=== PATIENT | male | born 1990 | race Caucasian/White ===

== ENCOUNTER 2024-08-17 00:11 | Emergency (ER) | payer OTHER, SELFPAY ==
[2024-08-17 00:17] VITALS: BP 138/85; PULSE 72; RESP 16; TEMP 35.9; O2SAT 100; BMI 27.3
--- NOTE | 2024-08-17 00:36 | ED.ABDPAIN ---
HPI - Abdominal Pain General Chief Complaint: Abdominal Pain Stated Complaint: dry heaving x4 hours Time Seen by Provider: 08/17/24 00:26 Source: patient Mode of arrival: Ambulatory History of Present Illness HPI narrative: 34-year-old male healthy with no significant past medical or past surgical history presents with for 5 hours of nausea vomiting and dry heaving, R sided abd pain and back pain, last ate a few hours ago. Patient took Pepto-Bismol with no relief of his symptoms. Other than what is stated 14 point review of system is negative. Related Data Previous Rx's Medication Instructions Recorded ondansetron 4 mg disintegrating 4 mg PO Q8H PRN nausea and 08/17/24 tablet vomiting #15 tabs prednisone 20 mg tablet 20 mg PO DAILY #5 tabs 08/17/24 Allergies Allergy/AdvReac Type Severity Reaction Status Date / Time No Known Drug Allergies Allergy Verified 08/17/24 00:16 Review of Systems Review of Systems ROS Unobtainable: All systems reviewed & are unremarkable except as noted in HPI and below Patient History Social History Smoking Status: Never smoker Smoking Status: Never smoker Exam Narrative Exam Narrative: GENERAL: [34] year old patient appears stated age. Well-developed patient, in mild distress. HEAD: Atraumatic. Normocephalic. EYES: Pupils equal round and reactive. Extraocular motions intact. No scleral icterus. No injection or drainage. ENT: Nose without bleeding, purulent drainage. Throat without erythema, tonsillar hypertrophy or exudate. Airway patent. NECK: Trachea midline. Non tender CARDIOVASCULAR: Regular rate and rhythm without murmurs, gallops, or rubs. RESPIRATORY: Clear to auscultation. Breath sounds equal bilaterally. No wheezes, rales, or rhonchi. GASTROINTESTINAL: Abdomen soft, diffuse ttp but neg zhang and neg rosvingn, nondistended. EXTREMITIES: No edema or joint tenderness. BACK: Nontender without deformity or crepitance. No flank tenderness. NEURO: AOx3. SKIN: No rash or erythema of visible areas Initial Vital Signs Initial Vital Signs: Vital Signs Temperature 96.7 F L 08/17/24 00:17 Pulse Rate 72 08/17/24 00:17 Respiratory Rate 16 08/17/24 00:17 Blood Pressure 138/85 08/17/24 00:17 Pulse Oximetry 100 08/17/24 00:17 Oxygen Delivery Method Room Air 08/17/24 00:17 Course Orders Ordered: ED Orders 08/17/24 00:37 CT abdomen pelvis w con Stat Discontinued Medications Lactated Ringer's (Lactated Ringers) 1,000 mls @ 1,000 mls/hr IV BOLUS ONE Stop: 08/17/24 01:37 Last Infusion: 08/17/24 01:52 Dose: Infused Documented By: Admin: 08/17/24 00:43 Dose: 1,000 mls/hr Documented By: Ketorolac Tromethamine (Ketorolac 30 Mg/Ml Vial) 30 mg IV NOW ONE Stop: 08/17/24 00:38 Last Admin: 08/17/24 00:43 Dose: 30 mg Documented By: Ondansetron HCl (Ondansetron 4 Mg/2 Ml Inj) 4 mg IV NOW ONE Stop: 08/17/24 00:38 Last Admin: 08/17/24 00:43 Dose: 4 mg Documented By: Vital Signs Vital signs: Vital Signs - 8 hr 08/17/24 00:17 08/17/24 01:19 08/17/24 01:19 Temperature 96.7 F L Pulse Rate 72 76 Respiratory Rate 16 Blood Pressure 138/85 136/76 Pulse Oximetry 100 99 Oxygen Delivery Method Room Air 08/17/24 01:30 08/17/24 01:30 Temperature Pulse Rate 71 Respiratory Rate Blood Pressure 134/76 Pulse Oximetry 98 Oxygen Delivery Method Room Air MDM - Abdominal Pain Imaging Data CT scan - abdomen/pelvis: Radiologist's Impression: [place] [address] CT Scan Report Signed Patient: Jeet Jennings MR#: [id number] : 1990 Acct:[id number] Age/Sex: 34 / M Date of Service: 08/17/24 Loc: ED Accession Number: [id number] Procedure: CT abdomen pelvis w con Ordering Provider: Tyrell Huntley D.O. PROCEDURE: CT ABDOMEN PELVIS W CON INDICATIONS: abdominal pain, N/V TECHNIQUE: After the administration of intravenous contrast, axial sections acquired from the lung bases to the pubic symphysis. Coronal and sagittal reformats were performed. For radiation dose reduction, the following was used: automated exposure control, adjustment of mA and/or kV according to patient size. COMPARISON: None. FINDINGS: Image quality: Diagnostic. Lower Chest: No significant findings. ABDOMEN: Liver: No solid mass. Scattered subcentimeter hypoattenuating lesions, too small to characterize by CT but probably small cysts. Gallbladder: No radiopaque gallstones or wall thickening. Biliary ducts: No biliary dilation. Pancreas: No ductal dilation. Spleen: Size is within normal limits. Adrenal Glands: No adrenal nodules. Kidneys and Ureters: No hydronephrosis. No solid mass. No complex renal cystic lesion which requires follow up. Stomach and Bowel: Distended loops of small bowel, without a discernible transition point. There are a few regions [id number] bowel wall thickening, with wall stratification. Wall thickening measures up to 4 mm (series 3, image 41). Peritoneum: Trace free fluid in the pelvis, likely reactive. Ventral Wall: No significant ventral hernia. Abdominal Nodes: No retroperitoneal or mesenteric adenopathy by size criteria. Vessels: Aorta and inferior vena cava are normal in size. PELVIS: Pelvic Organs: Unremarkable. Bladder: No bladder wall thickening, accounting for underdistention. Pelvic Nodes: No enlarged lymph nodes. Miscellaneous: No inguinal hernias are seen. Bones: No aggressive osseous abnormality. Sacroiliitis with ankylosis of the left sacroiliac joint. IMPRESSION: Small bowel distension with no discernible transition point. Additionally, there are skip lesions of [id number] wall thickening. Lastly, there is sacroiliitis with ankylosis of the left sacroiliac joint. Together, findings are concerning for inflammatory bowel disease, specifically Crohn's disease. Infectious enteritis is also consideration but less likely given the presence of skip lesions. Recommend outpatient GI referral. Dictated by: Sylvester Kramer M.D. on 08/17/2024 at 1:39 Approved by: Sylvester Kramer M.D. on 08/17/2024 at 1:44 MDM Narrative Medical decision making narrative: Vital signs medication list nurse triage note imaging studies in all previous visits all reviewed. Patient given lactated Ringer's 1 L bolus, Toradol IV, Zofran IV, Solumedrol 125mg IV. DC home on prednisone and Zofran and to follow up with GI MD. Differential diagnosis includes appendicitis, cholecystitis, constipation, pancreatitis, viral etiology. Discharge Plan Departure Patient Disposition: Home Clinical Impression: Crohn disease Qualifiers: Gastrointestinal tract location: small intestine Digestive disease complication type: without complication Qualified Code(s): K50.00 - Crohn's disease of small intestine without complications Instructions: DI for Crohns Disease Activity Restrictions/Additional Instructions: Return with new or worsening symptoms. Follow up with GI MD this week. Take your medicines as directed. Prescriptions: New prednisone 20 mg tablet 20 mg PO DAILY Qty: 5 0RF ondansetron 4 mg tablet,disintegrating 4 mg PO Q8H PRN (Reason: nausea and vomiting) Qty: 15 0RF Stand Alone Forms: Patient Portal/API/Survey
[2024-08-17] MEDS: ONDANSETRON 4 MG/2 ML INJ IV (00:43)
[2024-08-17] MEDS: KETOROLAC 30 MG/ML VIAL IV (00:43)
[2024-08-17] MEDS: LACTATED RINGERS 1,000 ML 1000 ML IV (00:43)
[2024-08-17 01:19] VITALS: BP 136/76; PULSE 76; O2SAT 99
[2024-08-17 01:30] VITALS: BP 134/76; PULSE 71; O2SAT 98
[2024-08-17 02:00] VITALS: BP 121/66; PULSE 72; O2SAT 98
[2024-08-17 02:15] LABS: Add Manual Diff / Slide Review NO; Basophils Absolute Auto 100 /uL (0-100); Basophils Percent Auto 0.4 % (0-2); Eosinophils Absolute Auto 200 /uL (0-450); Eosinophils Percent Auto 1.3 % (2-4); Hematocrit 47.5 % (41-53); Hemoglobin 16.5 g/dL (13.5-17.5); Lymphocytes Absolute Auto 2300 /uL (1100-4500); Lymphocytes Percent Auto 15.8 % (25-40); Mean Corpuscular HGB Conc 34.8 % (30-36); Mean Corpuscular Hemoglobin 30.1 PG (26-34); Mean Corpuscular Volume 86.5 fL (80-100); Monocytes Absolute Auto 700 /uL (0-900); Monocytes Percent Auto 4.8 % (3-14); Neutrophils Absolute Auto 11400 /uL (1500-7000); Neutrophils Percent Auto 77.7 % (50-75); Platelet Count 252 X10^3/uL (150-400); Red Blood Cell Count 5.49 X10^6/uL (4.5-5.9); Red Cell Distribution Width 12.2 % (11.6-14.8); White Blood Cell Count 14.7 X10^3/uL (4.5-11.0)
[2024-08-17 02:30] VITALS: BP 129/68; PULSE 73; O2SAT 97
[2024-08-17 02:39] LABS: Alanine Aminotransferase 48 IU/L (<50); Albumin 5.3 g/dL (3.5-5.0); Albumin Globulin Ratio 1.3 (1.0-2.8); Alkaline Phosphatase 94 U/L (38-126); Aspartate Aminotransferase 62 IU/L (17-59); BUN Creatinine Ratio 12.9 (6-22); Bilirubin Total 1.1 mg/dL (0.2-1.3); Blood Urea Nitrogen 17 mg/dL (9-20); Calcium 10.4 mg/dL (8.4-10.2); Carbon Dioxide 25 mmol/L (22-32); Chloride 101 mmol/L (98-107); Estimated Glomerular Filt Rate > 60 mL/min (>60); Globulin 4.1 g/dL (1.7-4.1); Glucose 115 mg/dL (70-99); HEMOLYSIS 22 (0-50); Lipase 71 U/L (23-300); Potassium 3.6 mmol/L (3.4-5.1); Sodium 141 mmol/L (137-145); Total Protein 9.4 g/dL (6.3-8.2)
[2024-08-17] MEDS: methylPREDNISolone 125 MG/2 ML VIAL IV (02:41)
[2024-08-17 02:44] VITALS: BP 123/82; PULSE 74; O2SAT 96
== END 2024-08-17 02:47 | disposition home or self-care (01) ==
PROVIDERS: Emergency Provider Family Medicine
DX: K50.00 Crohn's disease of small intestine without complications (principal); R10.9 Unspecified abdominal pain
CPT/HCPCS: 36415; 74177; 80053; 83690; 85025; 96361; 96374; 96375; 99284; J1885; J2405; J2919; Q9967